=== PATIENT | female | born 1965 | race Caucasian/White ===

== ENCOUNTER 2020-03-31 09:57 | Outpatient (CLI) | payer BC, SELFPAY ==
--- NOTE | 2020-03-31 09:59 | ECG_ITS ---
Measurements Intervals [place] Rate: 59 P: 26 KS: 143 QRS: 27 QRSD: 91 T: 31 QT: 364 QTc: 363 Interpretive Statements SINUS BRADYCARDIA INCOMPLETE RIGHT BUNDLE BRANCH BLOCK BORDERLINE ECG Electronically Signed On 03-31-2020 10:47:32 CDT by Estuardo Willis D.O.
== END 2020-03-31 09:58 | disposition home or self-care (01) ==
LOC: ANHSURGERY 09:59
PROVIDERS: PCP Family Medicine; Visit Provider Orthopaedic Surgery
DX: I10 Essential (primary) hypertension (principal); Z01.818 Encounter for other preprocedural examination; I45.10 Unspecified right bundle-branch block
CPT/HCPCS: 93005

== ENCOUNTER 2020-04-05 01:16 | Outpatient (CLI) | payer BC, SELFPAY ==
[2020-04-05 18:17] LABS: SARS-CoV-2 RNA PCR Negative
== END 2020-04-05 01:17 | disposition home or self-care (01) ==
LOC: ANHCOVIDDT 01:16
PROVIDERS: PCP Family Medicine; Visit Provider Orthopaedic Surgery
DX: Z01.812 Encounter for preprocedural laboratory examination (principal); Z20.828 Contact with and (suspected) exposure to other viral communicable diseases
CPT/HCPCS: 87635; C9803; U0003

== ENCOUNTER 2020-04-07 00:08 | Day surgery (SDC) | payer BC, SELFPAY ==
[2020-03-24 13:51] VITALS: BMI 36.0
--- NOTE | 2020-04-06 09:58 | P.PNAN_ITS ---
Anes - Initial Pre Proc Eval Procedure: Operation Date: 04/07/20 07:30 Proposed Procedures p Right Carpal Tunnel Release - Agus Donato MD Date/Time: 04/06/20 09:58 Surgeon: Agus Donato MD Pre Op Diagnosis: Right Carpal Tunnel Patient Data Age: 54 Gender: F Height: 1.7 m Weight: 104.33 kg Allergies Allergy/AdvReac Type Severity Reaction Status Date / Time Sulfa (Sulfonamide Allergy Unknown Rash Verified 04/03/20 15:42 Antibiotics) Home Medications Medication Instructions Recorded Confirmed Type sumatriptan succinate 50 mg tablet 50 mg PO ONCE PRN 09/01/19 03/24/20 History diclofenac sodium 50 mg 50 mg PO BID #60 tablet 03/28/20 Rx tablet,delayed release hydrocodone 5 mg-acetaminophen 325 1 - 2 tablet PO Q6-8H PRN #30 04/03/20 04/03/20 Rx mg tablet tablet metoprolol succinate 25 mg 25 mg PO DAILY #90 tablet 04/06/20 Rx tablet,extended release 24 hr Patient hx anesthesia problems: none Family hx anesthesia problems: none [facility] Past Medical History Medical History (Updated 04/03/20 @ 16:03 by Agus Donato MD) Hypertension Impingement syndrome of right shoulder Migraine Mitral valve prolapse Osteoarthritis of carpometacarpal joint of left thumb Osteoarthritis of right knee Surgical History Surgical History Status post lateral meniscectomy of right knee (~10/28/14) Social History Social History Smoking status: Never smoker Second hand tobacco smoke exposure: Yes Alcohol intake: current Drinks per week: 2 Spiritual care concerns: No Anes - Eval Final PreProcedure Day of Procedure 04/06/20 09:58 Patient weight: obese Heart: regular rate and rhythm Lungs: clear to auscultation and normal air movement Airway: Mallampati scale class II Neurological: alert and oriented Last oral intake: >/= 8 hours ASA classification: III Emergent: no Anesthetic plan: proceed Anesthesia type and monitoring: general GIVS and standard monitoring Informed Consent: The patient's anesthetic plan and its attendant risks and benefits were discussed with the patient/family/POA. Questions were solicited and answers provided to the satisfaction of the patient/family/POA.
[2020-04-07] MEDS: ACETAMINOPHEN 500 MG TABLET 1000 MG PO (06:45)
[2020-04-07] MEDS: KETOROLAC 15 MG/ML VIAL (*BKC) IV PUSH (06:45)
[2020-04-07 06:57] VITALS: BP 113/99; PULSE 64; TEMP 36.1; O2SAT 99
[2020-04-07] MEDS: LACTATED RINGERS 1,000 ML 30 ML IV CONT ×2 (07:23→08:17)
--- NOTE | 2020-04-07 07:26 | WPDHPUPDATE1 ---
History and Physical Update Update Date/Time: 04/07/20 07:26 History and Physical has been reviewed, including an updated exam of the patient. There are NO changes in the patient's condition. Risks, benefits, and alternatives have been discussed and questions answered. Patient agrees to proceed with procedure.
--- NOTE | 2020-04-07 07:33 | SUR.PREOP ---
0720- PT HAS A LARGE HEMATOMA ON LEFT HAND AND LEFT WRIST. PT WAS A DIFFICULT IV STICK. PRE OP NURSE AND ANESTHESIA AT BEDSIDE. PIV ACCESS IN RT AC.
--- NOTE | 2020-04-07 07:54 | SUR.OPER ---
Due to IV site, mechanical tourniquet could not be placed. placed ESMARK tourniquet below IV site. Placed at 0750 by .
[2020-04-07] MEDS: BUPIVACAINE/EPINEPHRINE 0.5% 10 ML VIAL INFILTRATE (07:57)
--- NOTE | 2020-04-07 07:58 | SUR.OPER ---
JENNI rodriguez released at 0756.
[2020-04-07 08:11] VITALS: BP 139/77; PULSE 88; RESP 16; TEMP 36.3; O2SAT 94
[2020-04-07 08:25] VITALS: BP 113/62; PULSE 56; RESP 14; O2SAT 96
[2020-04-07 08:26] VITALS: BP 117/64; PULSE 47; RESP 20
[2020-04-07 08:50] VITALS: BP 127/69; PULSE 50; RESP 20
[2020-04-07 09:10] VITALS: BP 110/62; PULSE 62; RESP 20
--- NOTE | 2020-04-07 17:51 | PM.PROC ---
Procedure Note - Detailed Date of procedure: 04/07/20 Pre-op diagnosis: Right Carpal Tunnel Right Carpal Tunnel Syndrome Post-op diagnosis: same Procedure performed: Carpal Tunnel Release Anesthesia: GLMA Surgeon: Agus Donato MD Estimated blood loss (mL): 1 Complications: None Condition: stable Findings: Operative details. The hand was prepped and draped in the usual sterile fashion sedation anesthesia was given with propofol. The proposed incision was marked using typical anatomic landmarks. 4ML 0.5% Marcaine with epinephrine was injected along the incision line and at the distal forearm. The limb was exsanguinated and the tourniquet inflated to 250 millimeters of mercury. A longitudinal incision was taken sharply. Dissection was brought down to the transverse carpal ligament. Under direct vision the ligament was incised sharply. The proximal release was carried out with dissection scissors. The contents of the carpal canal were protected with a [place] elevator. The transverse carpal ligament was confirmed to be widely patent. The tourniquet was released. Hemostasis was obtained. The wound was closed with a horizontal mattress Prolene suture. A sterile bulky dressing was applied. The patient was brought to the recovery room in stable condition. There were no complications.
== END 2020-04-07 09:15 | disposition home or self-care (01) ==
PROVIDERS: PCP Family Medicine; Visit Provider Orthopaedic Surgery
PROC: (CPT 64721; principal; 2020-04-07 07:30)
DX: G56.01 Carpal tunnel syndrome, right upper limb (principal); I10 Essential (primary) hypertension; I34.1 Nonrheumatic mitral (valve) prolapse; E66.9 Obesity, unspecified; Z68.37 Body mass index [BMI] 37.0-37.9, adult
CPT/HCPCS: 64721; A9270; J1100; J1885; J2250; J2405; J2704; J3010; J7120

== ENCOUNTER 2020-05-13 00:37 | Outpatient (CLI) | payer BC, SELFPAY ==
[2020-05-13 19:13] LABS: SARS-CoV-2 RNA PCR Negative
== END 2020-05-13 00:38 | disposition home or self-care (01) ==
LOC: ANHCOVIDDT 00:37
PROVIDERS: PCP Family Medicine; Visit Provider Orthopaedic Surgery
DX: Z01.818 Encounter for other preprocedural examination (principal); Z20.828 Contact with and (suspected) exposure to other viral communicable diseases
CPT/HCPCS: 87635; C9803; U0003

== ENCOUNTER 2020-05-16 01:08 | Day surgery (SDC) | payer BC, SELFPAY ==
[2020-05-12 10:15] VITALS: BMI 37.5
--- NOTE | 2020-05-15 12:20 | WPDANESEPPF ---
Anes - Initial Pre Proc Eval Procedure: Operation Date: 05/16/20 10:00 Proposed Procedures p Left Carpal Tunnel Release - Agus Donato MD Date/Time: 05/15/20 12:20 Surgeon: Agus Donato MD Pre Op Diagnosis: Left Carpal Tunnel Syndrome Patient Data Age: 54 Gender: F Height: 1.7 m Weight: 108.86 kg Allergies Allergy/AdvReac Type Severity Reaction Status Date / Time Sulfa (Sulfonamide Allergy Unknown Rash Verified 04/24/20 10:23 Antibiotics) Home Medications Medication Instructions Recorded Confirmed Type sumatriptan succinate 50 mg tablet 50 mg PO ONCE PRN 09/01/19 05/12/20 History diclofenac sodium 50 mg 50 mg PO BID #60 tablet 03/28/20 05/12/20 Rx tablet,delayed release metoprolol succinate 25 mg 25 mg PO DAILY #90 tablet 04/06/20 05/12/20 Rx tablet,extended release 24 hr Patient hx anesthesia problems: none Family hx anesthesia problems: none [facility] Past Medical History Medical History (Updated 05/15/20 @ 12:21 by Davian Walker MD) Hypertension Impingement syndrome of right shoulder Migraine Mitral valve prolapse Obesity Osteoarthritis of carpometacarpal joint of left thumb Osteoarthritis of right knee Surgical History Surgical History Status post lateral meniscectomy of right knee (~10/28/14) Social History Social History Smoking status: Never smoker Second hand tobacco smoke exposure: Yes Alcohol intake: current Drinks per week: 2 Living arrangements: with family Spiritual care concerns: No Anes - Eval Final PreProcedure Day of Procedure 05/15/20 12:20 Patient weight: obese Heart: regular rate and rhythm Lungs: clear to auscultation and normal air movement Airway: Mallampati scale class II Neurological: alert and oriented Last oral intake: >/= 8 hours ASA classification: III Emergent: no Anesthetic plan: proceed Anesthesia type and monitoring: general LMA Informed Consent: The patient's anesthetic plan and its attendant risks and benefits were discussed with the patient/family/POA. Questions were solicited and answers provided to the satisfaction of the patient/family/POA.
[2020-05-16 08:02] VITALS: BP 136/77; PULSE 73; RESP 20; TEMP 36.4; O2SAT 98
[2020-05-16] MEDS: LACTATED RINGERS 1,000 ML 30 ML IV CONT (08:36)
[2020-05-16] MEDS: ACETAMINOPHEN 500 MG TABLET 1000 MG PO (08:36)
[2020-05-16] MEDS: KETOROLAC 15 MG/ML VIAL (*BKC) IV PUSH (08:43)
--- NOTE | 2020-05-16 10:26 | WPDHPUPDATE1 ---
History and Physical Update Update Date/Time: 05/16/20 10:26 History and Physical has been reviewed, including an updated exam of the patient. There are NO changes in the patient's condition. Risks, benefits, and alternatives have been discussed and questions answered. Patient agrees to proceed with procedure.
[2020-05-16 11:15] VITALS: BP 109/72; PULSE 71; RESP 10; O2SAT 96
--- NOTE | 2020-05-16 11:33 | PM.PROC ---
Procedure Note - Detailed Date of procedure: 05/16/20 Pre-op diagnosis: Left Carpal Tunnel Syndrome Left Carpal Tunnel Syndrome Post-op diagnosis: same Procedure performed: Carpal Tunnel Release Anesthesia: MAC Surgeon: Agus Donato MD Estimated blood loss (mL): 1 Complications: None Condition: stable Findings: Operative details. The hand was prepped and draped in the usual sterile fashion sedation anesthesia was given with propofol. The proposed incision was marked using typical anatomic landmarks. 4ML 0.5% Marcaine with epinephrine was injected along the incision line and at the distal forearm. The limb was exsanguinated and the tourniquet inflated to 250 millimeters of mercury. A longitudinal incision was taken sharply. Dissection was brought down to the transverse carpal ligament. Under direct vision the ligament was incised sharply. The proximal release was carried out with dissection scissors. The contents of the carpal canal were protected with a [place] elevator. The transverse carpal ligament was confirmed to be widely patent. The tourniquet was released. Hemostasis was obtained. The wound was closed with a horizontal mattress Prolene suture. A sterile bulky dressing was applied. The patient was brought to the recovery room in stable condition. There were no complications.
[2020-05-16 11:45] VITALS: BP 109/72; PULSE 71; RESP 20
[2020-05-16 12:15] VITALS: BP 115/65; PULSE 53; RESP 18
== END 2020-05-16 12:25 | disposition home or self-care (01) ==
PROVIDERS: PCP Family Medicine; Visit Provider Orthopaedic Surgery
PROC: (CPT 64721; principal; 2020-05-16 10:00)
DX: G56.02 Carpal tunnel syndrome, left upper limb (principal); I10 Essential (primary) hypertension; I34.1 Nonrheumatic mitral (valve) prolapse; E66.9 Obesity, unspecified; Z68.37 Body mass index [BMI] 37.0-37.9, adult
CPT/HCPCS: 64721; A9270; J1885; J2250; J3010; J7120

== ENCOUNTER 2020-05-25 15:39 | Outpatient (CLI) | payer BC, SELFPAY ==
--- NOTE | ~2020-05-25 | MM_ITS ---
EXAMINATION: MM screening marialuisa BI w aubrey HISTORY: Screening mammogram TECHNIQUE: Craniocaudal and mediolateral oblique 3-D tomosynthesis images were obtained and synthetic 2-D images were generated. CAD analysis was submitted and interpreted. COMPARISON: No prior mammogram is available for comparison at this institution. BREAST PARENCHYMAL COMPOSITION: There are scattered areas of fibroglandular density. FINDINGS: There is no evidence of suspicious mass, calcification, or architectural distortion to sugg est malignancy in either breast. There has been no suspicious interval change. IMPRESSION: 1. No mammographic evidence of malignancy. 2. Recommend routine screening mammography in one year. BI-RADS Category 1: Negative Reviewed, dictated and finalized at location A. ACCOUNT MANAGER
== END 2020-05-25 15:40 | disposition home or self-care (01) ==
PROVIDERS: PCP Family Medicine; Visit Provider Physician Assistant
DX: Z12.31 Encounter for screening mammogram for malignant neoplasm of breast (principal)
CPT/HCPCS: 77063; 77067

== ENCOUNTER 2020-07-31 15:49 | Outpatient (CLI) | payer BC, SELFPAY ==
--- NOTE | ~2020-07-31 | MR_ITS ---
EXAMINATION: MR knee LT wo con DATE: 07/31/2020 16:40 INDICATION: Left knee pain. TECHNIQUE: Magnetic resonance imaging (MRI) of the left knee was performed without intravenous contra st. Sequences included axial PD-weighted FS FSE, coronal PD-weighted FSE and PD-weighted FS FSE, sagi ttal PD-weighted FSE, and sagittal T2-weighted FS FSE. COMPARISON: Left knee radiographs 06/28/2020 FINDINGS: Medial compartment: There is a radial tear of posterior horn of medial meniscus. There is full-thickness cartilage loss o f femoral condyle involving the central and posterior articular surface with mild subchondral edema-l bakari marrow signal intensity. There is extensive partial thickness cartilage loss of femoral condyle. There is partial-thickness cartilage loss of tibial condyle, deep at the anterior and medial articula r surface where there is mild subchondral edema-like marrow signal intensity. Lateral compartment: Lateral meniscus is normal. There is partial-thickness cartilage loss of tibial condyle, deep at the posterior articular surface. There is partial-thickness cartilage loss of femoral condyle, deep at th e central articular surface. Patellofemoral compartment: There is deep partial thickness cartilage loss of patellar medial facet, median ridge, and lateral fa cet with mild subchondral edema-like marrow signal intensity. There is shallow partial-thickness cart ilage loss of trochlea. Ligaments and tendons: The anterior and posterior cruciate ligaments are normal. There are changes of prior sprains of media l collateral ligament and fibular collateral ligament characterized by increased signal intensity pro ximally. There is mild patellar tendinopathy. Fluid: There is a large knee joint effusion. There is trace fluid in a Nicole's cyst. There is moderate prepa tellar and superficial infrapatellar bursitis. IMPRESSION: 1. Severe chondrosis of medial compartment and moderate chondrosis of lateral and patellofemoral comp artments. 2. Tear of medial meniscus. 3. Large knee joint effusion. Reviewed, dictated and finalized at location A. MACHINE OPERATOR IMPRESSION: 1. Severe chondrosis of medial compartment and moderate chondrosis of lateral a nd patellofemoral compartments. 2. Tear of medial meniscus. 3. Large knee joint effusion.
== END 2020-07-31 15:50 | disposition home or self-care (01) ==
PROVIDERS: PCP Family Medicine; Visit Provider Orthopaedic Surgery
DX: M25.462 Effusion, left knee (principal); S83.242A Other tear of medial meniscus, current injury, left knee, initial encounter; X58.XXXA Exposure to other specified factors, initial encounter
CPT/HCPCS: 73721

== ENCOUNTER → 2020-08-22 00:45 | Outpatient (CLI) | payer BC, SELFPAY ==
[2020-08-23 14:14] LABS: SARS-CoV-2 RNA PCR Negative
== END ==
PROVIDERS: PCP Family Medicine; Visit Provider Orthopaedic Surgery
DX: Z01.812 Encounter for preprocedural laboratory examination (principal); Z20.822 Contact with and (suspected) exposure to COVID-19
CPT/HCPCS: C9803; U0003; U0005

== ENCOUNTER 2020-08-25 01:31 | Day surgery (SDC) | payer BC, SELFPAY ==
[2020-08-21 11:00] VITALS: BMI 37.5
--- NOTE | 2020-08-24 10:10 | WPDANESEPPF ---
Anes - Initial Pre Proc Eval Procedure: Operation Date: 08/25/20 14:30 Proposed Procedures p Left Arthroscopic Partial Medial Meniscectomy - Agus Donato MD Date/Time: 08/24/20 10:10 Surgeon: Agus Donato MD Pre Op Diagnosis: Left Meniscus Tear Patient Data Age: 54 Gender: F Height: 1.7 m Weight: 108.8 kg Allergies Allergy/AdvReac Type Severity Reaction Status Date / Time Sulfa (Sulfonamide Allergy Unknown Rash Verified 08/25/20 12:37 Antibiotics) Home Medications Medication Instructions Recorded Confirmed Type sumatriptan succinate 50 mg tablet 50 mg PO ONCE PRN 09/01/19 08/21/20 History metoprolol succinate 25 mg 25 mg PO DAILY #90 tablet 04/06/20 08/25/20 Rx tablet,extended release 24 hr hydrocodone 5 mg-acetaminophen 325 1 tablet PO Q4H PRN #10 tablet 06/28/20 08/25/20 Rx mg tablet diclofenac sodium 50 mg 50 mg PO BID #60 tablet 07/30/20 08/25/20 Rx tablet,delayed release Patient hx anesthesia problems: none Family hx anesthesia problems: none [facility] Past Medical History Medical History Hypertension Impingement syndrome of right shoulder Migraine Mitral valve prolapse Obesity Osteoarthritis of carpometacarpal joint of left thumb Osteoarthritis of right knee Surgical History Surgical History Status post lateral meniscectomy of right knee (~10/28/14) Social History Social History Smoking status: Never smoker Second hand tobacco smoke exposure: Yes Alcohol intake: current Drinks per week: 2 Alcohol use details: 1 EVERY COUPLE WEEKS Substance use: never Substance use type: does not use Living arrangements: with family Spiritual care concerns: No Anes - Eval Final PreProcedure Day of Procedure 08/24/20 10:10 Patient weight: obese Heart: regular rate and rhythm Lungs: clear to auscultation and normal air movement Airway: Mallampati scale class II Neurological: alert and oriented Last oral intake: >/= 8 hours ASA classification: III Emergent: no Anesthetic plan: proceed Anesthesia type and monitoring: general LMA and standard monitoring Informed Consent: The patient's anesthetic plan and its attendant risks and benefits were discussed with the patient/family/POA. Questions were solicited and answers provided to the satisfaction of the patient/family/POA.
[2020-08-25] VITALS (7 sets, daily range): BP systolic 103–155; BP diastolic 71–86; PULSE 50–82; RESP 12–16; TEMP 36.1–36.3; O2SAT 97–100
--- NOTE | 2020-08-25 10:49 | WPDHPUPDATE1 ---
History and Physical Update Update Date/Time: 08/25/20 10:49 History and Physical has been reviewed, including an updated exam of the patient. There are NO changes in the patient's condition. Risks, benefits, and alternatives have been discussed and questions answered. Patient agrees to proceed with procedure.
[2020-08-25] MEDS: ACETAMINOPHEN 500 MG TABLET 1000 MG PO (12:50)
[2020-08-25] MEDS: KETOROLAC 15 MG/ML VIAL (*BKC) IV PUSH (13:05)
[2020-08-25] MEDS: LACTATED RINGERS 1,000 ML 30 ML IV CONT ×2 (13:05→16:25)
--- NOTE | 2020-08-25 13:58 | SUR.PREOP ---
Discussed 30 minute delay. Voices understanding. No needs at present.
--- NOTE | 2020-08-25 14:36 | SUR.PREOP ---
Up to bathroom.
[2020-08-25] MEDS: ceFAZolin 2 GM/D5W 50 ML 2 GM/50 ML BAG IVPB (15:25)
[2020-08-25] MEDS: BUPIVACAINE/EPINEPHRINE 0.5% 30 ML VIAL 20 ML INFILTRATE (16:16)
[2020-08-25] MEDS: fentaNYL CITRATE INJ (*CRX) 100 MCG/2 ML VIAL 25 MCG IV PUSH ×2 (17:00→17:05)
[2020-08-25] MEDS: oxyCODONE HCL (*CRX) 5 MG TAB IR PO (18:16)
--- NOTE | 2020-08-26 12:09 | P.OP_ITS ---
Procedure Note - Detailed Date of procedure: 08/25/20 Pre-op diagnosis: Left Meniscus Tear Medial meniscus tear. Post-op diagnosis: same Procedure performed: Arthroscopic partial medial meniscectomy. Anesthesia: RADHAA Surgeon: Agus Donato MD Sales Account Representative: Sarah Castaneda PA-C Estimated blood loss (mL): 5 Complications: None Condition: stable Findings: Brief History: The patient complained of knee pain, swelling and mechanical symptoms despite conservative treatment. MRI confirmed the presence of a meniscus tear. Procedure Details: The patient was identified and the surgical site confirmed and signed in the preoperative holding area. Antibiotics were started per protocol. She was brought to the operative room and transferred to the OR table. A general anesthetic was administered. Supine position with the operative lower extremity position in the leg henderson after placement of a well padded tourniquet. The leg support was lowered and the contralateral limb was supported with a soft bolster. The knee was prepped and draped in the usual sterile fashion. A time-out was performed. The portal sites were marked and infiltrated with 0.5% Marcaine 20 mL. The limb was exsanguinated and the tourniquet inflated to 300 mL Hg. Standard inferolateral and inferomedial portals were established. Inflow was obtained with the saline pump. The camera was introduced. Diagnostic inspection of the joint was accomplished. The meniscus was debrided with the arthroscopic shaver and punches until stable. The arthroscopic instruments were removed. The tourniquet released and wounds closed with subcutaneous 3-0 Monocryl absorbable suture. Steri strips and a sterile dressing were applied. A light elastic wrap was placed. The patient was extubated and brought to the recovery room in stable condition.
== END 2020-08-25 18:55 | disposition home or self-care (01) ==
PROVIDERS: PCP Family Medicine; Visit Provider Orthopaedic Surgery
PROC: (CPT 29870; principal; 2020-08-25 14:30)
DX: M23.304 Other meniscus derangements, unspecified medial meniscus, left knee (principal); I10 Essential (primary) hypertension; I34.1 Nonrheumatic mitral (valve) prolapse; M19.90 Unspecified osteoarthritis, unspecified site; E66.9 Obesity, unspecified; Z68.38 Body mass index [BMI] 38.0-38.9, adult
CPT/HCPCS: 29881; A9270; J0690; J1100; J1885; J2250; J2405; J2704; J3010; J7120

== ENCOUNTER → 2021-01-08 00:37 | Outpatient (CLI) | payer BC, SELFPAY ==
[2021-01-08 17:06] LABS: SARS-CoV-2 RNA PCR Positive
== END ==
PROVIDERS: PCP Family Medicine; Visit Provider Internal Medicine Gastroenterology
DX: U07.1 COVID-19 (principal)
CPT/HCPCS: C9803; U0003; U0005

== ENCOUNTER 2021-02-15 23:59 | Day surgery (SDC) | payer BC, SELFPAY ==
[2021-01-08 10:32] VITALS: BMI 35.9
[2021-02-13 11:35] VITALS: BMI 35.9
[2021-02-16] MEDS: LACTATED RINGERS 1,000 ML 150 ML IV CONT (09:15)
[2021-02-16 09:17] VITALS: BP 169/95; PULSE 85; RESP 20; TEMP 36; O2SAT 100; BMI 37.3
--- NOTE | 2021-02-16 09:20 | WPDANESEPPF ---
Anes - Initial Pre Proc Eval Procedure: Operation Date: 02/16/21 09:30 Proposed Procedures p Screening Colonoscopy - Omid Hancock MD Date/Time: 02/16/21 09:20 Surgeon: Omid Hancock MD Pre Op Diagnosis: neoplasm screening Patient Data Age: 55 Gender: F Height: 1.7 m Weight: 108.2 kg Last Vital Signs Temp 36.0 C L 02/16/21 09:17 Pulse 85 02/16/21 09:17 Resp 20 02/16/21 09:17 BP 169/95 H 02/16/21 09:17 Pulse Ox 100 02/16/21 09:17 Allergies Allergy/AdvReac Type Severity Reaction Status Date / Time Sulfa (Sulfonamide Allergy Unknown Rash Verified 02/16/21 09:16 Antibiotics) Home Medications Medication Instructions Recorded Confirmed Type sumatriptan succinate 50 mg tablet 50 mg PO ONCE PRN 09/01/19 02/16/21 History diclofenac sodium 50 mg 50 mg PO BID #60 tablet 11/13/20 02/16/21 Rx tablet,delayed release metoprolol succinate 25 mg 25 mg PO DAILY #90 tablet 12/26/20 02/16/21 Rx tablet,extended release 24 hr Patient hx anesthesia problems: none Family hx anesthesia problems: none PMFSH Past Medical History Medical History Hypertension Impingement syndrome of right shoulder Migraine Mitral valve prolapse Obesity Osteoarthritis of carpometacarpal joint of left thumb Osteoarthritis of right knee Surgical History Surgical History History of carpal tunnel release (~05/16/20) Lt S/P medial meniscectomy of left knee Status post lateral meniscectomy of right knee (~10/28/14) Social History Social History Smoking status: Never smoker Second hand tobacco smoke exposure: Yes Alcohol intake: current Drinks per week: 2 Alcohol use details: 1 EVERY COUPLE WEEKS Substance use: never Substance use type: does not use Living arrangements: with family Spiritual care concerns: No Anes - Eval Final PreProcedure Day of Procedure 02/16/21 09:20 Patient weight: obese Heart: regular rate and rhythm Lungs: clear to auscultation Airway: Mallampati scale class II Neurological: alert and oriented Last oral intake: >/= 8 hours ASA classification: II Emergent: no Anesthetic plan: proceed Anesthesia type and monitoring: general GIVS and standard monitoring Informed Consent: The patient's anesthetic plan and its attendant risks and benefits were discussed with the patient/family/POA. Questions were solicited and answers provided to the satisfaction of the patient/family/POA.
--- NOTE | 2021-02-16 09:26 | WPDGICN ---
Assessment and Plan Assessment and plan (1) Family history of colonic polyps: Code(s): Z83.71 - Family history of colonic polyps Status: Acute Assessment and Plan: Patient presents for neoplasia screening colonoscopy. her father and brother both have had colon polyps. Three of 4 grandparents have had colon cancer. Surveillance colonoscopy advised at least every 5 years in this patient. Further recommendations will be given after endoscopy. GI Consult Note Consult date/time: 02/16/21 09:26 HPI: Zee Driver is a 55 year old female Referred for colonoscopy. Patient reports that her current weight appetite bowel movements are normal. She denies abdominal pain she has had no bleeding. Family history is significant both father and brother have had colon polyps. Three of her 4 grandparents have had colon cancer. Patient presents today for neoplasia screening. Review of Systems Review of Systems: All systems reviewed & are unremarkable except as noted in HPI and below PMFSH Past Medical History Medical History Hypertension Impingement syndrome of right shoulder Migraine Mitral valve prolapse Obesity Osteoarthritis of carpometacarpal joint of left thumb Osteoarthritis of right knee Surgical History Surgical History History of carpal tunnel release (~05/16/20) Lt S/P medial meniscectomy of left knee Status post lateral meniscectomy of right knee (~10/28/14) Social History Social History Smoking status: Never smoker Second hand tobacco smoke exposure: Yes Alcohol intake: current Drinks per week: 2 Alcohol use details: 1 EVERY COUPLE WEEKS Substance use: never Substance use type: does not use Living arrangements: with family Spiritual care concerns: No Meds Home Medications and Allergies Home Medications Medication Instructions Recorded Confirmed Type sumatriptan succinate 50 mg tablet 50 mg PO ONCE PRN 09/01/19 02/16/21 History diclofenac sodium 50 mg 50 mg PO BID #60 tablet 11/13/20 02/16/21 Rx tablet,delayed release metoprolol succinate 25 mg 25 mg PO DAILY #90 tablet 12/26/20 02/16/21 Rx tablet,extended release 24 hr Allergies Allergy/AdvReac Type Severity Reaction Status Date / Time Sulfa (Sulfonamide Allergy Unknown Rash Verified 02/16/21 09:16 Antibiotics) Vital Signs Vital Signs - 24 hr 02/16/21 09:17 Temperature 96.8 F L Pulse Rate 85 Respiratory Rate 20 Blood Pressure 169/95 H Pulse Oximetry 100 Exam Narrative: Physical exam reveals patient to be alert. Vital signs stable. HEENT exam is unremarkable. Patient is anicteric. Lungs are clear to auscultation and percussion. Heart is without murmur or extra sounds. Abdominal exam bowel sounds are present soft nontender with no organomegaly. Digital external rectal exam is normal.
[2021-02-16 09:56] VITALS: BP 122/78; PULSE 73; RESP 20; O2SAT 99
[2021-02-16 10:06] VITALS: BP 141/82; PULSE 62; RESP 16; O2SAT 100
[2021-02-16 10:16] VITALS: BP 135/76; PULSE 64; RESP 18; O2SAT 100
== END 2021-02-16 10:30 | disposition home or self-care (01) ==
PROVIDERS: PCP Family Medicine; Visit Provider Internal Medicine Gastroenterology
PROC: 0DJD8ZZ Inspection of Lower Intestinal Tract, Via Natural or Artificial Opening Endoscopic (ICD-10-PCS; CPT 45378; principal; 2021-02-16 09:30)
DX: Z12.11 Encounter for screening for malignant neoplasm of colon (principal); Z80.0 Family history of malignant neoplasm of digestive organs; Z83.71 Family history of colonic polyps; I10 Essential (primary) hypertension; I34.1 Nonrheumatic mitral (valve) prolapse; E66.9 Obesity, unspecified; M18.9 Osteoarthritis of first carpometacarpal joint, unspecified; M17.11 Unilateral primary osteoarthritis, right knee; K64.8 Other hemorrhoids
CPT/HCPCS: 45378; J2704; J7120

== ENCOUNTER 2021-07-03 17:05 | Outpatient (CLI) | payer BC, SELFPAY ==
--- NOTE | ~2021-07-03 | MM_ITS ---
EXAMINATION: MM screening marialuisa BI w aubrey HISTORY: Screening mammogram TECHNIQUE: Craniocaudal and mediolateral oblique 3-D tomosynthesis images were obtained and synthetic 2-D images were generated. CAD analysis was submitted and interpreted. COMPARISON: 05/25/2020 BREAST PARENCHYMAL COMPOSITION: There are scattered areas of fibroglandular density. FINDINGS: There is no evidence of suspicious mass, calcification, or architectural distortion to sugg est malignancy in either breast. There has been no suspicious interval change. IMPRESSION: 1. No mammographic evidence of malignancy. 2. Recommend routine screening mammography in one year. BI-RADS Category 1: Negative Reviewed, dictated and finalized at location A. 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
== END 2021-07-03 17:06 | disposition home or self-care (01) ==
LOC: ANHIMG 17:08
PROVIDERS: PCP Family Medicine; Visit Provider Family Medicine
DX: Z12.31 Encounter for screening mammogram for malignant neoplasm of breast (principal)
CPT/HCPCS: 77063; 77067

== ENCOUNTER 2021-12-03 10:29 | Outpatient (CLI) | payer BC, SELFPAY ==
--- NOTE | ~2021-12-03 | NM_ITS ---
EXAMINATION: NM beulah stress w perfusion DATE: 12/03/2021 12:19 INDICATION: Dyspnea TECHNIQUE: Rest images were obtained following intravenous administration of 6.88 mCi Tc99m tetrofosm in (Myoview). The patient was infused intravenously with Lexiscan (Regadenoson). Then, 22 mCi Tc99m t etrofosmin (Myoview) was administered intravenously, and stress images were obtained. Data was recons tructed into short axis and horizontal and vertical long axis SPECT images. Gated SPECT images were a lso obtained. COMPARISON: None. FINDINGS: There is no definite reversible or fixed perfusion abnormality to suggest ischemia or infar ction. There is normal left ventricular chamber size, wall motion and ejection fraction. Left ventr icular ejection fraction measures >70%. IMPRESSION: 1. Normal myocardial perfusion at rest and during stress. 2. Left ventricular ejection fraction measuring %. Reviewed, dictated and finalized at location A.
--- NOTE | 2021-12-03 10:37 | EST_ITS ---
Patient Info Name: Zee Driver Age: 55 years : 1965 Gender: Female Ht: 67 in Wt: 225 lbs BSA: 2.24 m2 HR: 58 bpm BP: 128 / 76 mmHg Heart Rhythm: Sinus Rhythm Exam Date: 12/03/2021 11:18 AM Exam Location: [facility] Stress Patient Status: Outpatient Admit Date: 12/03/2021 Staff Ordering Physician: Estuardo Willis DO Attending Provider: Estuardo Willis DO Exercise Technologist: Chela Gasca CT Exercise Physician: Estuardo Willis DO Exam Type: CA stress beulah w NM Study Info Indications I34.0 - Nonrheumatic mitral (valve) insufficiency A regadenoson stress test was performed. Summary 1. 1. Negative lexiscan stress test for ischemic ST changes by ECG criteria. 2. 2. Stable hemodynamics throughout the test. 3. 3. Nuclear scan to follow and will be reported separately. Please correlate with it. 4. 4. Patient informed of the above results. Protocol: Lexiscan Stress ECG Details Stage: REST Duration (min): 0 min : 59 sec HR (bpm): 63 SBP (mmHg): 128 DBP (mmHg): 76 Stage: REST Duration (min): 10 min : 7 sec HR (bpm): 63 SBP (mmHg): 128 DBP (mmHg): 76 Stage: STAGE 1 Duration (min): 0 min : 59 sec HR (bpm): 86 SBP (mmHg): 152 DBP (mmHg): 61 Stage: RECOVERY Duration (min): 1 min : 0 sec HR (bpm): 86 SBP (mmHg): 152 DBP (mmHg): 61 Stage: RECOVERY Duration (min): 2 min : 0 sec HR (bpm): 80 SBP (mmHg): 152 DBP (mmHg): 61 Stage: RECOVERY Duration (min): 3 min : 0 sec HR (bpm): 76 SBP (mmHg): 128 DBP (mmHg): 64 Stage: RECOVERY Duration (min): 3 min : 2 sec HR (bpm): 76 SBP (mmHg): 128 DBP (mmHg): 64 Rest HR: 63 bpm Peak HR: 88 bpm Rest Sys BP: 128 mmHg Peak Sys BP: 152 mmHg Max Pred HR: 167 bpm % Max Pred HR: 53 % Target HR: 142 bpm Max RPP: 13,376 bpm*mmHg Termination Reason: Completed protocol Cardiac Symptoms: Shortness of breath Total Time: 1 min : 0 sec Rest Newman BP: 76 mmHg Peak Newman BP: 61 mmHg Total Dose: 0.4 mg Resting ECG Sinus rhythm. Stress ECG No ST changes. Arrhythmias None. Report Signatures
--- NOTE | 2021-12-03 10:56 | ECHO_ITS ---
Patient Info Name: Zee Driver Age: 55 years : 1965 Gender: Female Ht: 67 in Wt: 220 lbs BSA: 2.21 m2 HR: 58 bpm BP: 135 / 79 mmHg Technical Quality: Good Exam Date: 12/03/2021 1:46 PM Exam Location: [facility] Patient Status: Outpatient Admit Date: 12/03/2021 Staff Ordering Physician: Estuardo Willis DO In Home Sales Consultant: Carmen Rockwell RDCS Attending Provider: Estuardo Willis DO Referring Physician: Lazaro DUKES; Exam Type: CA echo doppler color flow Study Info Indications - nonrheumatic mitral valve prolapse Complete two-dimensional, color flow and Doppler transthoracic echocardiogram is performed. Summary 1. Complete two-dimensional, color flow and Doppler transthoracic echocardiogram is performed. 2. Left ventricular chamber dimension is normal. 3. Left ventricular systolic function is normal, estimated at 65-70%. 4. The left ventricular diastolic function is normal. 5. There is trace mitral valve regurgitation. 6. No pulmonary hypertension, estimated pulmonary arterial systolic pressure is 32 mmHg. 7. There is trace pulmonic regurgitation. Left Ventricle Tissue doppler E/e' is not performed. Left ventricular chamber dimension is normal. Left ventricular systolic function is normal, estimated at 65-70%. The left ventricular diastolic function is normal. Right Ventricle Right ventricular chamber dimension is normal. Right ventricular systolic function is normal. Left Atria Left atrial chamber dimension is normal. Right Atria Right atrial chamber dimension is normal. Aortic Valve The aortic valve is trileaflet. There is no aortic valve stenosis. There is no aortic valve regurgitation. Pulmonic Valve There is trace pulmonic regurgitation. Mitral Valve There is no mitral valve stenosis. There is trace mitral valve regurgitation. Tricuspid Valve There is no tricuspid valve regurgitation. No pulmonary hypertension, estimated pulmonary arterial systolic pressure is 32 mmHg. Pericardium/Pleural There is no pericardial effusion. Inferior Vena Cava Normal inferior vena cava with >50% collapse upon inspiration consistent with normal right atrial pressure, 5 mmHg. Aorta The aortic root size at the sinus of Valsalva is normal. Left Ventricular Outflow Tract Name Value Normal LVOT 2D LVOT Diameter 2.0 cm LVOT Doppler LVOT Peak Gradient 6 mmHg LVOT Mean Gradient 4 mmHg LVOT VTI 27 cm LVOT VTI/AV VTI Ratio 0.7 LVOT Stroke Volume 85 ml LVOT CO 17.2 l/min LVOT CI 7.8 l/min/m2 Pulmonic Valve Name Value Normal PV Doppler PV Peak Gradient 3 mmHg Tricuspid Valve
== END 2021-12-03 10:30 | disposition home or self-care (01) ==
PROVIDERS: PCP Family Medicine; Visit Provider Internal Medicine Cardiovascular Disease
DX: R06.00 Dyspnea, unspecified (principal)
CPT/HCPCS: 78452; 93017; 93306; A9502; J2785

== ENCOUNTER 2022-01-15 09:56 | Outpatient (CLI) | payer BC, SELFPAY ==
[2022-01-15 11:16] LABS: Basophils Percent Auto 0.6 % (0.2-1.2); Eosinophils Absolute Auto 0.2 K/mm3 (0-0.3); Eosinophils Percent Auto 2.6 % (0-4.4); Hematocrit 41.5 % (37.0-47.0); Immature Granulocyte Absolute 0.01 K/mm3 (0.00-0.031); Immature Granulocyte Percent A 0.2 % (0-0.5); Lymphocytes Absolute Auto 1.22 K/mm3 (0.9-3.2); Lymphocytes Percent Auto 18.8 % (18.3-44.2); Mean Corpuscular HGB Conc 31.3 g/dl (32-36); Mean Corpuscular Hemoglobin 26.4 pg (26-34); Mean Corpuscular Volume 84.2 fl (80-100); Mean Platelet Volume 9.1 fl (7.4-10.4); Monocytes Absolute Auto 0.4 K/mm3 (0.1-0.6); Monocytes Percent Auto 6.6 % (2.6-8.5); Neutrophils Absolute Auto 4.6 K/mm3 (1.3-6.7); Neutrophils Percent Auto 71.2 % (45.5-73.1); Platelet Count Result 213 k/mm3 (150-375); Red Blood Count 4.93 M/mm3 (4.2-5.4); Red Cell Distribution Width 14.3 % (11.5-14.5); White Blood Count 6.5 K/mm3 (4.5-10.0)
[2022-01-15 11:30] LABS: Albumin Level 4.7 g/dL (3.5-5.1); Estimated Glomerular Filt Rate > 60; Glucose 87 mg/dL (65-110)
[2022-01-15 11:34] LABS: Urine Cotinine NEGATIVE
[2022-01-15 11:39] LABS: Hemoglobin A1C 5.3 % (<5.7)
== END 2022-01-15 09:57 | disposition home or self-care (01) ==
PROVIDERS: PCP Family Medicine; Visit Provider Orthopaedic Surgery
DX: M17.12 Unilateral primary osteoarthritis, left knee (principal); Z01.818 Encounter for other preprocedural examination
CPT/HCPCS: 80307; 82040; 82565; 82947; 83036; 85025; 86850; 86900; 86901; 87081

== ENCOUNTER 2022-01-21 00:25 | Day surgery (SDC) | payer BC, SELFPAY ==
[2022-01-15 10:11] VITALS: BMI 35.2
--- NOTE | 2022-01-15 10:36 | PC.NURSE ---
Report to the Outpatient Waiting Room, entrance under the green pavilion located off [facility], at time _1000 on date __01/21/22 . OR Time: _1200 . - You and your visitor will be asked a series of questions to screen for COVID 19 for your protection. - Only one visitor is allowed at this time. - The patient visitor is requested to leave or wait in car when not with patient. - A mask is required within the hospital. Patients may have clear liquids (water, carbonated beverages, clear teas, apple juice) until 3 hours prior to surgery with a maximum of 20 ounces. - No food from midnight until time of surgery - Infants may have breast milk until 4 hours before surgery, infant formula 6 hours prior to surgery. - Children will be allowed to drink immediately following surgery. If applicable, please bring a bottle or sippy cup to assist with drinking. Juice, water, soda, and popsicles are readily available. For infants on formula, please bring formula the day of surgery. Pacifiers are allowed. Take the following medications with a SIP of water the morning of surgery: ____METOPROLOL Medications to discontinue per physician ____DICLOFENAC 7 DAYS PRE OP Date to take last dose__01/13/22 Please no make-up, nail yoruba, hairspray, perfume, deodorant, or body powder the day of surgery. No jewelry (including any body piercings) or valuables the day of surgery, leave them at home. Please take a shower or bath the night before, or the morning of, surgery with an antibacterial soap. Wear comfortable, loose fitting clothing. Children are encouraged to wear pajamas. - Jewelry must be removed prior to entering the operating room. Rings and piercings that are not removed may be cut off. - The hospital will not accept responsibility for valuables. - Please leave all valuables, including medications, at home the day of surgery. If you are going home after surgery, a licensed driver starting gate must drive you home. - NO public transportation without another adult. - We recommend that an adult stay with you for 24 hours following discharge. - We also recommend that you do not drive, make important decision, drink alcoholic beverages, or take any drugs that were not prescribed by your health care provider for at least 24 hours after your discharge time. For Pediatric surgeries, we recommend two adults accompany the child home (only one inside the building at this time). Follow any additional instructions given to you from your surgeon. If you or anyone in your household have experienced Covid symptoms in the past week, please notify your surgeon or the nurse liaison at the phone number below for possible testing. VERBAL AND WRITTEN instructions given to _PATIENT and asked if any additional questions and then verbalized understanding. Patient advised to call surgeon office or pre surgery nurse liaison [phone] if any additional questions.
[2022-01-15 10:54] VITALS: BP 147/71; PULSE 67; RESP 18; TEMP 36.8; O2SAT 100
[2022-01-21] VITALS (14 sets, daily range): BP systolic 128–174; BP diastolic 63–88; PULSE 49–90; RESP 12–18; TEMP 36.1–36.6; O2SAT 95–100; BMI 38.0
--- NOTE | ~2022-01-21 | XR_ITS ---
EXAMINATION: XR knee LT 2V DATE: 01/21/2022 15:00 INDICATION: Postoperative evaluation following left total knee arthroplasty. TECHNIQUE: Anteroposterior and lateral views of the left knee were obtained. COMPARISON: None. FINDINGS: Left total knee arthroplasty with patellar resurfacing appears well seated and in near anatomic align ment. No fractures identified. Expected postoperative subcutaneous and intra-articular gas. IMPRESSION: 1. Left total knee arthroplasty, negative for postoperative purposes. Reviewed, dictated and finalized at location A.
--- NOTE | 2022-01-21 07:32 | W.PM.PROC2 ---
Procedure Note - Detailed Date of Procedure 01/21/22 Pre-op Diagnosis Prim O.A. Lt Knee Post-op Diagnosis Same Procedure Performed Total knee arthroplasty Surgeon Agus Donato MD Beveller Operator Sarah Galindo PA-C Anesthesia General and Regional (subsartorial block) Findings Uncemented knee. Good bone quality. Slight IT band release. Description of Procedure The patient was given a nerve block preoperatively, and then brought to the operating room. A general anesthetic was administered. The leg was prepped and draped in the usual sterile fashion. The limb was elevated and the tourniquet inflated to 300 mmHg during initial exposure. A longitudinal incision was created along the medial border of the patella and patellar tendon, and a trivector approach to the knee was performed. There was medial pseudolaxity, thus no medial release was taken. The osteophytes were carefully removed. The intramedullary guide was placed in the femoral canal. The distal femoral resection was then taken with the oscillating saw. The collateral ligaments were carefully protected. The tibia was carefully exposed. The anterior cruciate ligament was resected. The PCL was retained. The jig was applied, and the proximal tibia was resected according to the preoperative plan. The patella was resected for resurfacing. The three lug holes were drilled. The knee was balanced in extension. Appropriate releases were taken where needed. The knee was copiously irrigated with antibiotic solution periodically throughout the procedure. The femur was sized and rotation assessed using a combination of gap balancing, posterior referencing, and the AP axis. The 4 in 1 cutting block was used to finish the femoral cuts after equal gaps were assured. The lug holes were drilled. The osteophytes were carefully removed from the back of the knee. The meniscal remnants were removed. The spacer block was used to confirm equal flexion and extension gaps in flexion and extension. Further releases were performed as needed. The tibia was sized and broached. The real tibial component was impacted into position followed by press fitting the femoral component, and patellar component. The bipolar electrocautery device was used at the capsule were needed. Patellar tracking was carefully assessed. No additional releases were required. The wound was closed with 2 Quill suture, 0-Quill suture, and 2-0 Quill suture followed by Steri-Strips. A sterile bulky dressing was applied. Meticulous hemostasis was maintained throughout the procedure with electrocautery and the Aquamantys cautery device. There were no complications. The patient was extubated and brought to the recovery room in stable condition after the application of sterile dressing with Hal bandage. Physician executive marketing assistant, Sarah Galindo PA-C, required for surgery; including patient positioning, draping, tissue retraction, maintaining instrument position, wound closure, and dressing placement. Implants [employer] Triathlon knee system, press fit tritanium tibia size 4, press fit cruciate retaining femoral component size 4 ,and an 9 mm X3 cruciate retaining polyethylene insert. 32 mm asymmetric tritanium patella component. Estimated Blood Loss 100 Drains No Pathology None sent Complications No immediate complications Condition Stable Disposition PACU [facility] Billing Surgery - Charge Forward: Surgery Billing
[2022-01-21] MEDS: LACTATED RINGERS 1,000 ML 30 ML IV CONT ×2 (10:24→14:46)
[2022-01-21] MEDS: ACETAMINOPHEN 500 MG TABLET 1000 MG PO (10:25)
[2022-01-21] MEDS: TRANEXAMIC ACID 1,000MG/ISO100 1,000 MG/100 ML BAG 200 MG IVPB (10:28)
--- NOTE | 2022-01-21 10:48 | P.PNAN_ITS ---
Anes - Initial Pre Proc Eval Procedure: Operation Date: 01/21/22 12:00 Proposed Procedures p Left Total Knee Arthroplasty - Agus Donato MD Date/Time: 01/21/22 10:48 Surgeon: Agus Donato MD Pre Op Diagnosis: Prim O.A. Lt Knee Patient Data Age: 56 Gender: F Height: 1.7 m Weight: 102.1 kg Last Vital Signs Temp 98.2 F 01/15/22 10:54 Pulse 67 01/15/22 10:54 Resp 18 01/15/22 10:54 BP 147/71 H 01/15/22 10:54 Pulse Ox 100 01/15/22 10:54 O2 Del Method Room Air 01/15/22 10:54 Allergies Allergy/AdvReac Type Severity Reaction Status Date / Time Sulfa (Sulfonamide Allergy Unknown Rash Verified 01/21/22 10:47 Antibiotics) Home Medications Medication Instructions Recorded Confirmed Type sumatriptan succinate 50 mg tablet 50 mg PO ONCE PRN Migraine Headache 09/01/19 01/21/22 History (Imitrex) tramadol 50 mg tablet 50 mg PO Q6H PRN pain #30 tabs 10/01/21 01/21/22 Rx metoprolol succinate 25 mg See Rx Instructions .Route 10/05/21 01/21/22 Rx tablet,extended release 24 hr .COMPLEX #90 tabs diclofenac sodium 50 mg 50 mg PO BID #60 tabs 01/08/22 01/21/22 Rx tablet,delayed release acetaminophen 500 mg tablet 1,000 mg PO PRN PRN Pain 01/15/22 01/21/22 History (Acetaminophen Extra Strength) Patient hx anesthesia problems: none Family hx anesthesia problems: none Results Review: All pre-operative results and documents have been reviewed as part of the pre- operative evaluation. [facility] Past Medical History Medical History (Updated 01/21/22 @ 10:40 by Carlitos Zuluaga MD) Dyslipidemia Hypertension Impingement syndrome of right shoulder Migraine Mitral valve prolapse Obesity Osteoarthritis of carpometacarpal joint of left thumb Osteoarthritis of right knee Surgical History Surgical History History of carpal tunnel release (~05/16/20) Lt S/P medial meniscectomy of left knee Status post lateral meniscectomy of right knee (~10/28/14) Social History Social History Smoking status: Never smoker Second hand tobacco smoke exposure: Yes Additional smoking assessment comments: DENIES ANY TOBACCO USE Alcohol intake: current Drinks per week: 2 Alcohol use details: ONE DRINK PER MONTH Substance use: never Substance use type: does not use Living arrangements: with family Spiritual care concerns: No Anes - Eval Final PreProcedure Day of Procedure 01/21/22 10:48 Patient weight: obese Heart: regular rate and rhythm Lungs: clear to auscultation Airway: Mallampati scale class III Neurological: alert and oriented Last oral intake: >/= 8 hours ASA classification: III Emergent: no Anesthetic plan: proceed Anesthesia type and monitoring: general ETT and standard monitoring Results Review: All pre-operative results and documents have been reviewed as part of the pre- operative evaluation. Informed Consent: The patient's anesthetic plan and its attendant risks and benefits were discussed with the patient/family/POA. Questions were solicited and answers provided to the satisfaction of the patient/family/POA.
--- NOTE | 2022-01-21 11:54 | WPDHPUPDATE1 ---
History and Physical Update Update Date/Time: 01/21/22 11:54 History and Physical has been reviewed, including an updated exam of the patient. There are NO changes in the patient's condition. Risks, benefits, and alternatives have been discussed and questions answered. Patient agrees to proceed with procedure.
--- NOTE | 2022-01-21 12:07 | WPDANESPNB ---
Anes - Peripheral Nerve Block Date/Time: 01/21/22 12:07 I have discussed with the patient/family/POA the placement of a peripheral nerve block for post-operative pain management, including associated risks, benefits, complications, and side effects. Alternative methods of post-operative analgesia were detailed. Questions were solicited and answers provided to the satisfaction of the patient/family/POA. Time-Out: A pre-procedural Time-Out was completed immediately before starting the procedure and confirmed: Patient Identification, Site, Procedure, Patient Position and the Availability of Requisite Equipment. Clinical Indications: Acute post-operative pain management requested by the operative surgeon. Nerve Block Insertion Note Anes-nerve block: adductor canal left Patient position: supine Skin prep: chlorhexidine Needle: 22 gauge, stimulating, insulated echogenic needle. Needle length: 80 mm Technique: ultrasound Injectate: bupivacaine 0.5% with epi 5 mcg/ml (30cc - no epi) Observations: tolerated well Complications: none Procedure start time:: 1202 Procedure end time:: 1205
[2022-01-21] MEDS: ceFAZolin 2 GM/D5W 50 ML 2 GM/50 ML BAG IVPB ×2 (12:24→21:46)
[2022-01-21] MEDS: fentaNYL CITRATE INJ (*CRX) 100 MCG/2 ML VIAL 25 MCG IV PUSH ×5 (14:54→15:45)
--- NOTE | 2022-01-21 17:04 | ADMGEN ---
This patient, Zee Driver, was admitted to Medical Room 253-. Patient/family oriented to hospital policies and general routines including ID bracelet, bed and alarms, visiting hours, pain management, procedures, bathroom and other care routines, personal items, smoking policy, room service/diet, and visiting hours. Information on how to activate the Rapid Response Team has been discussed. Patient/Family are encouraged to report perceived risks to care and to ask questions if they do not understand what they are told or what they should do.
[2022-01-21] MEDS: SODIUM CHLORIDE 0.9% IV 1,000 ML 125 ML IV CONT (17:54)
[2022-01-21] MEDS: SENNA/DOCUSATE SODIUM TABLET 2 TAB PO (17:55)
[2022-01-21] MEDS: ASPIRIN 81 MG ENTERIC TABLET PO (17:56)
[2022-01-21] MEDS: oxyCODONE HCL (*CRX) 5 MG TAB IR PO (20:26)
--- NOTE | 2022-01-21 22:08 | PC.NURSE ---
Pt did not have IV access until 2129. Per pharmacist Everton give PAOLA cefazolin q6h following first administration at 2144 to complete all 3 doses within 24h as ordered.
[2022-01-21] MEDS: FAMOTIDINE 20 MG TABLET PO (23:11)
[2022-01-22] MEDS: oxyCODONE HCL (*CRX) 5 MG TAB IR PO ×3 (00:21→09:07)
[2022-01-22 02:04] VITALS: BP 125/55; PULSE 85; RESP 16; TEMP 36.3; O2SAT 99
[2022-01-22] MEDS: ceFAZolin 2 GM/D5W 50 ML 2 GM/50 ML BAG IVPB ×2 (04:28→10:29)
[2022-01-22 05:37] VITALS: BP 114/56; PULSE 84; RESP 16; TEMP 36.7; O2SAT 99
--- NOTE | 2022-01-22 08:51 | WPDANESPN ---
Anes - Prog Note Post-Op Date/Time: 01/22/22 08:51 Vital Signs: Last Vital Signs Temp 36.7 C 01/22/22 05:37 Pulse 84 01/22/22 05:37 Resp 16 01/22/22 05:37 BP 114/56 L 01/22/22 05:37 Pulse Ox 99 01/22/22 05:37 O2 Del Method Room Air 01/22/22 07:54 O2 Flow Rate 6 01/21/22 15:15 Pain Score (VAS): 2 I/O: Intake & Output 01/21/22 01/22/22 01/22/22 23:59 07:59 15:59 Intake Total 570 0 Balance 570 0 Patient Feedback: Patient satisfied with anesthetic care.
[2022-01-22] MEDS: predniSONE 5 MG TABLET PO (09:04)
[2022-01-22] MEDS: SENNA/DOCUSATE SODIUM TABLET 2 TAB PO (09:05)
[2022-01-22] MEDS: ASPIRIN 81 MG ENTERIC TABLET PO (09:05)
[2022-01-22 09:06] VITALS: PULSE 70
[2022-01-22] MEDS: FAMOTIDINE 20 MG TABLET PO (09:06)
[2022-01-22] MEDS: METOPROLOL SUCCINATE EXT REL 25 MG TABCR PO (09:06)
[2022-01-22] MEDS: polyethylene glycoL 3350 17 GM POWD.PACK PO (09:09)
--- NOTE | 2022-01-22 09:20 | PC.NURSE ---
spoke with pharmacy about patient's 0900 voltaren because it is missing from my drawer. They stated they will not have any in until Friday.
--- NOTE | 2022-01-22 09:48 | P.DS_ITS ---
DS: Admitting Diagnosis Discharge Date 01/22/22 Admitting Diagnosis OA knee Left DS: Discharge Diagnosis Discharge Diagnosis (1) Status post left knee replacement: Code(s): Z96.652 - Presence of left artificial knee joint Status: Acute Assessment and Plan: Postop day 1: Left total knee arthroplasty. Patient tolerated procedure well. No complications. Pain manageable with pain medication. No numbness or tingling. We had a lengthy discussion regarding postoperative wound care, limitations, expectations, and exercises. Patient shows good understanding. She has had initial physical therapy and is tolerating it well. DVT prophylaxis: 81 mg baby aspirin b.i.d. for 14 days. Pain medication: Percocet. Continue home Diclofenac. No more than 3,000 mg Tylenol in 24 hour period. Prednisone. Patient has followup appointment with Dr. Donato in 3 weeks. DS: Summary Hospital Course Reason for hospitalization: Total knee arthroplasty Hospital Course: Patient tolerated procedure well. Has had initial PT/OT. Status at Discharge Functional status at discharge: uses cane/walker Overall status at discharge: patient is progressing back to baseline Time Spent with Patient Time attestation: Total time spent providing and/or coordinating discharge services: Exam Narrative: Overweight 56-year-old female. Resting comfortably in chair. Alert and oriented x3. No acute distress. Wearing compression socks bilaterally. Dressing dry and intact without drainage. Moderate swelling. No ecchymosis. No erythema. No hematoma. Range of motion limited due to pain. Calf nontender. Quad fires. Neurologic status intact. No varicosities. Distal pulses palpable. Discharge Plan Discharge Patient Disposition: Home, Self-Care Discharge Instructions: See green instruction sheets. Stand Alone Forms: General Discharge Instructions Follow-up/Referrals: Sarah Galindo PA [Physician Marketing Information Analyst] - Discharge Medications: New aspirin 81 mg tablet,delayed release (DR/EC) 81 mg PO BID 14 Days Qty: 28 0RF prednisone 5 mg tablet 5 mg PO DAILY 21 Days Qty: 21 0RF oxycodone-acetaminophen 5-325 mg tablet 1 - 2 tablet PO Q4-6H MDD 6 PRN (Reason: pain) Qty: 30 0RF Continued sumatriptan succinate [Imitrex] 50 mg tablet 50 mg PO ONCE PRN (Reason: Migraine Headache) Label Comments: pt stated it has been 3-4 weeks tramadol 50 mg tablet 50 mg PO Q6H PRN (Reason: pain) Qty: 30 0RF acetaminophen [Acetaminophen Extra Strength] 500 mg Tablet 1,000 mg PO PRN PRN (Reason: Pain) metoprolol succinate 25 mg tablet extended release 24 hr See Rx Instructions .ROUTE .COMPLEX Qty: 90 1RF Dose Instruction: TAKE 1 TABLET BY MOUTH ONCE DAILY Rx Instructions: TAKE 1 TABLET BY MOUTH ONCE DAILY diclofenac sodium 50 mg tablet,delayed release (DR/EC) 50 mg PO BID Qty: 60 2RF
[2022-01-22 10:18] VITALS: BP 125/60; PULSE 87; RESP 16; TEMP 36.5; O2SAT 100
--- NOTE | 2022-01-22 10:19 | PC.NURSE ---
RN spoke with Rob Webb, Pt lost IV access prior evening and new access was delayed which resulted in delayed ABX infusion. OK to administer ABX Q6 H rather than Q8 as ordered.
--- NOTE | 2022-01-22 12:03 | PC.NURSE ---
Spoke with pharmacy about patient's IV tylenol. I am unable to pull it out of the pyxis due to the administration time being off. The patient had lost IV access overnight and was unable to get her second dose of tylenol until 0544. The pharmacist said she will place a one time order to that the patient can get her last dose and so that I can pull it from the pyxis.
[2022-01-22] MEDS: oxyCODONE HCL (*CRX) 5 MG TAB IR 10 MG PO (12:59)
== END 2022-01-22 13:19 | disposition home or self-care (01) ==
LOC: ANHSURGERY 09:44 → ANH2MED 16:35
PROVIDERS: PCP Family Medicine; Visit Provider Orthopaedic Surgery
PROC: (CPT 27447; principal; 2022-01-21 12:00)
DX: M17.12 Unilateral primary osteoarthritis, left knee (principal); G89.18 Other acute postprocedural pain; I10 Essential (primary) hypertension; E78.5 Hyperlipidemia, unspecified; I34.1 Nonrheumatic mitral (valve) prolapse; E66.9 Obesity, unspecified; Z68.38 Body mass index [BMI] 38.0-38.9, adult
CPT/HCPCS: 27447; 64447; 73560; 97110; 97161; 97165; A9270; C1713; C1776; J0131; J0171; J0690; J1100; J1885; J2250; J2270; J2405; J2704; J2795; J3010; J7030; J7120; J7512

== ENCOUNTER 2022-06-05 13:28 | Outpatient (CLI) | payer BC, SELFPAY ==
--- NOTE | ~2022-06-05 | MMUS_ITS ---
EXAMINATION: MM diagnostic marialuisa RT w aubrey, US breast RT limited HISTORY: Anterior inner mid right breast lump, pain TECHNIQUE: Additional 3-D tomosynthesis images of the right breast were performed and synthetic 2-D i mages were generated. CAD analysis was submitted and interpreted. High resolution targeted right zoran st ultrasound was performed. COMPARISON: 05/03/2022 bilateral screening mammogram BREAST PARENCHYMAL COMPOSITION: There are scattered areas of fibroglandular density. FINDINGS: MAMMOGRAPHIC FINDINGS: No suspicious mass or architectural distortion, malignant calcification, skin thickening or retractio n or significant new or developing density is detected. ULTRASOUND: There is no evidence of focal abnormal solid or cystic lesion at the area of clinical complaint at 1: 00 4 cm from nipple. IMPRESSION: 1. No mammographic evidence of malignancy 2. Routine mammographic screening is recommended BI-RADS Category 1: Negative Reviewed, dictated and finalized at location A. 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 No mammographic evidence of malignancy 2. Routine mammographic screening is recommended BI-RADS Category 1: Negative
== END 2022-06-05 13:29 | disposition home or self-care (01) ==
LOC: ANHIMG 13:31
PROVIDERS: PCP Family Medicine; Visit Provider Physician Assistant Medical
DX: N63.10 Unspecified lump in the right breast, unspecified quadrant (principal)
CPT/HCPCS: 76642; 77061; 77065; G0279

== ENCOUNTER 2024-02-03 15:01 | Outpatient (CLI) | payer BC, SELFPAY ==
--- NOTE | ~2024-02-03 | MM_ITS ---
EXAMINATION: MM screening marialuisa BI w aubrey HISTORY: Screening TECHNIQUE: Craniocaudal and mediolateral oblique 3-D tomosynthesis images were obtained and synthetic 2-D images were generated. CAD analysis was submitted and interpreted. COMPARISON: Comparison to multiple prior studies sequentially, with oldest reviewed study dated 05/09. BREAST PARENCHYMAL COMPOSITION: Not dense: There are scattered areas of fibroglandular density. FINDINGS: There is no evidence of suspicious mass, calcification, or architectural distortion to sugg est malignancy in either breast. There has been no suspicious interval change. IMPRESSION: 1. No mammographic evidence of malignancy. 2. Recommend routine screening mammography in one year. BI-RADS Category 1: Negative Reviewed, dictated and finalized at location B.
== END 2024-02-03 15:02 | disposition home or self-care (01) ==
PROVIDERS: PCP Family Medicine; Visit Provider Family Medicine
DX: Z12.31 Encounter for screening mammogram for malignant neoplasm of breast (principal)
CPT/HCPCS: 77063; 77067